=== PATIENT | female | born 1940 | race Caucasian/White ===

== ENCOUNTER 2025-05-21 20:43 | Inpatient (IN) | payer MEDICARE, SELFPAY ==
[2025-05-21 20:49] VITALS: BP 120/65; PULSE 109; RESP 18; TEMP 37.9; O2SAT 91
[2025-05-21 21:02] VITALS: PULSE 118; RESP 18
--- NOTE | 2025-05-21 21:14 | EDNOTE_ITS ---
ED Fall Injury RME/HPI General Chief Complaint: Fall Stated Complaint: ANXIETY Time Seen by Provider: 05/21/25 21:14 Arrival date/time: 05/21/25 20:43 RME / HPI RME / HPI Narrative: Dr. Pendleton?s Main ED Evaluation: 85yo female with no significant past medical history BIBA from home presents to the ED for a chief complaint of a fall. Patient slipped and fell, reporting she felt generally weak and was unable to get up. Patient reports having vomiting and a decreased appetite for the last 2- 3 days. Denies any cough, shortness of breath, or any other associated symptoms. Denies any tobacco or alcohol use. Family at bedside notes the patient's son recently . Related Data Previous Rx's ?Medication ?Instructions ?Recorded clindamycin HCl 150 mg capsule 450 mg (3 x 150 mg) PO TID #30 caps 09/30/20 Allergies Allergy/AdvReac Type Severity Reaction Status Date / Time erythromycin base Allergy Verified 09/30/20 16:40 Penicillins Allergy Verified 09/30/20 16:40 Review of Systems Review of Systems Systems Reviewed: All systems reviewed, normal except as documented Past Medical History Social History SMOKING STATUS: Former smoker ED Exam Narrative Physical exam: Generally elderly appearing female in no obvious distress, heart regular rate and rhythm, lungs clear to auscultation equal bilaterally, abdomen soft bowel sounds present nondistended nontender, extremities show no edema and no deformity., Skin is warm and dry, neurologic exam Grady Coma Scale is 15 without focal motor deficits. Course Course Course Narrative: 2112: Sepsis alert initiated. Orders made at this time are congruent with ED Adult Sepsis Order List. Re-evaluation is to be completed. CXR is ordered for determining the etiology of fever. 2141: NS IVF started. 2335: Sepsis reassessment performed consisting of lab review, vitals, physical exam including auscultation of heart, lungs, and visual evaluation of capillary refills, mucosal membranes and extremities. Quality Measures none Orders Category Date Time Status Bedside COVID-19 Antigen Test NOW Care 05/21/25 21:23 Active Bedside Influenza A&B Antigen Test NOW Care 05/21/25 21:[address] Screening NOW Care 05/21/25 23:12 Active EKG (ED ONLY) *Do not use* NOW Care 05/21/25 21:22 Completed Insert IV NOW Care 05/21/25 21:30 Active Straight [In and Out Catheter] X1 Care 05/21/25 21:[address] angio chest Stat Exams 05/21/25 23:12 Taken EKG (ED Only) Stat Exams 05/21/25 21:22 Draft XR chest 1V portable Stat Exams 05/21/25 21:22 Completed Blood Culture (Lab) Stat Lab 05/21/25 21:26 Received CBC Stat Lab 05/21/25 21:26 Completed CMP [Comprehensive Metabolic Panel] Stat Lab 05/21/25 21:26 Completed Lactic Acid [Lactate (Lactic Acid)] Stat Lab 05/21/25 21:26 Completed Lactic Acid, 3 HR Stat Lab 05/22/25 00:46 Ordered Magnesium Stat Lab 05/21/25 21:26 Completed Troponin I Stat Lab 05/21/25 21:26 Completed UA [Urinalysis] Stat Lab 05/21/25 21:36 Completed Acetaminophen Tab [Tylenol Tab] Med 05/21/25 21:22 Discontinued 650 mg PO X1 ONE Magnesium Sulfate 2 GM Ivpb [Magnesium Sulfate Ivpb] Med 05/22/25 00:56 Active 2 gm in 50 ml IV X1 POTASSIUM CHL 20 mEq IVPB [Kcl Ivpb] Med 05/21/25 23:11 Active 20 meq in 100 ml IV X1 Potassium Chloride [K-Dur] Med 05/21/25 23:10 Discontinued 60 meq PO X1 ONE Sodium Chloride 0.9% 1000 ml [Ns] 1,000 ml Med 05/21/25 23:43 Active IV 100 mls/hr Sodium Chloride 0.9% 1000 ml [Ns] 1,000 ml Med 05/21/25 21:22 Discontinued IV 999 mls/hr cefTRIAXone/D5w 1gm IV premix [Rocephin/D5w 1gm IV Med 05/21/25 21:22 Discontinued premix] 1 gm in 50 ml IV X1 Vital Signs Vital signs: Vital Signs Temperature 100.2 F 05/21/25 20:49 Pulse Rate 109 H 05/21/25 20:49 Respiratory Rate 18 05/21/25 20:49 Blood Pressure 120/65 05/21/25 20:49 Pulse Oximetry (%) 91 L 05/21/25 20:49 Oxygen Delivery Method Room Air 05/21/25 20:49 Fall MDM Narrative MDM Narrative:: Scribe Attestation: 05/21/25 - Joanna Maloney, am scribing for and in the presence of Dr. Pendleton. Differential diagnosis: UTI, pneumonia, pulmonary embolism, acute coronary syndrome, electrolyte abnormality, sepsis I interpreted all labs. Potassium was low at 2.8. Patient received 60 mill equivalents of potassium p.o. and 10 mill equivalents of potassium IV every hour x 2. Magnesium was slightly low at 1.5 so the patient will receive mag sulfate 2 g IV. Code sepsis was called in this patient. She was febrile up to 102 degrees. She received Tylenol 650 mg p.o. for fever. Urine appeared to be infected. After blood cultures are obtained the patient received Rocephin 1 g IV. Patient has not been hypotensive. Lactic acid level is 2.5. Patient's O2 saturation upon presentation on room air was 90%. Chest x-ray was clear. CT scan of the chest with IV contrast to assess for pulmonary embolism is pending interpretation by radiology. I will discuss this case with the hospitalist and the patient will require admission to hospital for further treatment and evaluation for her sepsis most likely secondary to UTI. Troponin was slightly elevated here in the emergency room with an EKG done at 9:28 PM showing a sinus tachycardia at a rate of [address] segment depress ions or elevations. Patient does not smoke cigarettes. Patient data External records reviewed:: [facility] previous records (Per chart review, patient has no relevant previous ED visits.) and EMS form Clinical information provided by:: patient Social determinants that could affect healthcare access:: none Patient has the following chronic illnesses:: none How is presenting disease/condition affected by chronic disease/condition?: no chronic disease Evaluation data The following diagnostics were reviewed and interpreted by me:: lab results, radiology exam(s) and EKG tracing(s) Lab and/or radiology exams considered but not ordered:: none Interpretation Summary: [facility] Report Signed Patient: SEBASTIAN CASTAÑEDA [facility]. Record#: [id number] Birthdate: 1940 Age/Sex: 85 / F Location: [facility] Attending Dr: Ordering Physician: Robin Pendleton DO Date of Service: 05/21/25 Procedure(s): XR chest 1V portable Accession Number(s): [id number] cc: Yuri Blackman MD; Pendleton,Robin T DO~ Examination: AP chest single view Technique one AP portable upright chest single view Date and time: May 21, 2025, 2136 hrs. Indications: Sepsis alert today Findings: Normal heart size No lobar pneumonia. No pulmonary edema. Old right clavicle fracture Prominent pulmonary arteries Impression: No pneumonia identified. Prominent pulmonary arteries, pulmonary artery hypertension pattern Dictated By: Yuri Blackman MD Signed By: <Electronically signed by Yuri Blackman MD in OV> 05/21/252153 Medications / Prescriptions Medications or Prescriptions considered but not ordered:: none Medication administrations:: Medication Administration History Potassium Chloride (Kcl Ivpb) 20 meq in 100 mls @ 50 mls/hr IV X1 ONE Stop: 05/22/25 01:10 Last Admin: 05/21/25 23:51 Dose: 50 mls/hr Documented By: JUSTIN Sodium Chloride (Ns) 1,000 mls @ 100 mls/hr IV .Q10H ONE Stop: 05/22/25 09:42 Last Admin: 05/21/25 23:51 Dose: 100 mls/hr Documented By: JUSTIN Magnesium Sulfate (Magnesium Sulfate Ivpb) 2 gm in 50 mls @ 25 mls/hr IV X1 ONE Stop: 05/22/25 02:55 Discontinued Medications Acetaminophen (Acetaminophen 325 Mg Tablet) 650 mg PO X1 ONE Stop: 05/21/25 21:23 Last Admin: 05/21/25 21:42 Dose: 650 mg Documented By: JUSTIN Ceftriaxone Sodium/Dextrose (Rocephin/D5w 1gm Iv Premix) 1 gm in 50 mls @ 100 mls/hr IV X1 ONE Stop: 05/21/25 21:51 Last Infusion: 05/21/25 23:05 Dose: Infused Documented By: Admin: 05/21/25 21:42 Dose: 100 mls/hr Documented By: JUSTIN Sodium Chloride (Ns) 1,000 mls @ 999 mls/hr IV .Q1H1M ONE Stop: 05/21/25 22:22 Last Infusion: 05/21/25 23:06 Dose: Infused Documented By: Admin: 05/21/25 21:42 Dose: 999 mls/hr Documented By: JUSTIN Potassium Chloride (Potassium Chloride 20 Meq Tabcr) 60 meq PO X1 ONE Stop: 05/21/25 23:11 Last Admin: 05/21/25 23:52 Dose: 60 meq Documented By: JUSTIN see above Consultations Consultation(s) initiated? (list below): Yes Consultation #1 (Physician, Specialty, Details): Discussed case with Dr. Dupont from Hospitalist service regarding admission. Discussed patients ED course, exam findings, labs, and radiology results. The Hospitalist agrees to accept the patient for admission. Diagnosis Fall Differential Diagnosis: other (See MDM) Most likely diagnosis given after review of the tests above:: see clinical impression below Admission Indicated Admission indicated?: indicated Admission Request Was there a request for admission?: Yes Admission Attestation Admission request attestation: Discussed case with [] from Hospitalist service regarding admission. Discussed patients ED course, exam findings, labs, and radiology results. The Hospitalist [agrees,declines] to accept the patient for admission. Disposition Plan Disposition Plan: Admit Critical Care Time Critical Care Time Total Critical Care Time (min.): 35 Attestation: Excluding other billable procedures Discharge Plan Plan Patient Disposition: Admit Acute Care w/in Hospital Prescriptions/Referrals Prescriptions/Med Rec: No Action clindamycin HCl 150 mg capsule 450 mg PO TID Qty: 30 0RF Referrals: No Primary/Family,Physician [Referring Provider] - In 1 week Problem List Clinical Impression: Sepsis, Acute UTI, Acute hypokalemia, Hypomagnesemia, Elevated troponin Patient/Caregiver Discharge Instructions Print Language: Kazakh Stand Alone Forms: Billie Award Info., Patient Portal Info Letter
[2025-05-21 21:20] VITALS: BP 110/68; PULSE 108; RESP 25; TEMP 39.2; O2SAT 92
--- NOTE | 2025-05-21 21:22 | EKG_ITS ---
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
--- NOTE | 2025-05-21 21:22 | XR_ITS ---
Examination: AP chest single view Technique one AP portable upright chest single view Date and time: May 21, 2025, 2136 hrs. Indications: Sepsis alert today Findings: Normal heart size No lobar pneumonia. No pulmonary edema. Old right clavicle fracture Prominent pulmonary arteries Impression: No pneumonia identified. Prominent pulmonary arteries, pulmonary artery hypertension pattern
[2025-05-21 21:42] VITALS: TEMP 39.2
[2025-05-21] MEDS: SODIUM CHLORIDE 0.9% 1000 ML 1,000 ML 999 ML IV (21:42)
[2025-05-21] MEDS: ACETAMINOPHEN 325 MG TABLET 650 MG PO (21:42)
[2025-05-21] MEDS: cefTRIAXone/D5w 1gm IV premix 1 GM/50 ML BAG IV (21:42)
[2025-05-21 21:51] LABS: Collection Type, Urine Voided
[2025-05-21 21:54] LABS: Lactate (Lactic Acid) 2.5 mMol/L (0.4-2.0)
[2025-05-21 21:55] LABS: Basophils # (Auto) 0.0 Thou/mm3 (0.0-0.2); Basophils % (Auto) 0 % (0-2.5); Eosinophils # (Auto) 0.0 Thou/mm3 (0.0-0.5); Eosinophils % (Auto) 0 % (0-10); Hematocrit 39.4 % (36.0-46.0); Hemoglobin 13.4 g/dL (12.0-16.0); Immature Granulocytes Auto 0.10 Thou/mm3 (0.00-0.00); Lymphocytes # (Auto) 0.4 Thou/mm3 (1.0-4.8); Lymphocytes % (Auto) 5 % (10-50); Mean Corpuscular HGB Conc 34.0 g/dl (31.0-37.0); Mean Corpuscular Hemoglobin 31.3 pg (25.0-35.0); Mean Corpuscular Volume 92 fL (80-100); Monocytes # (Auto) 0.5 Thou/mm3 (0.0-0.8); Monocytes % (Auto) 5 % (0-12); Neutrophils # (Auto) 8.2 Thou/mm3 (1.8-7.7); Neutrophils % (Auto) 89 % (37-80); Nucleated Red Blood Cell # 0.00 Thou/mm3 (0.00-0.00); Nucleated Red Blood Cell % 0 /100 WBC (0); Platelet Count 142 Thou/mm3 (140-440); RDW Standard Deviation 47.9 fL (36.4-46.3); Red Blood Count 4.28 Miln/mm3 (4.00-5.20); White Blood Count 9.1 Thou/mm3 (3.6-11.0)
[2025-05-21 22:07] LABS: Bacteria,Urine 1+; Bilirubin,Urine Negative (Negative); Blood,Urine 2+ (Negative); Budding Yeast,Urine Present; Clarity,Urine Turbid (Clear/Hazy); Color,Urine Yellow (Lt Yel-Yel); Glucose, Urine Negative (Negative); Ketones,Urine Negative (Negative); Leukocyte Esterase,Urine Positive (Negative); Nitrite,Urine Negative (Negative); PH,Urine 5.5 (5.0-7.0); Protein,Urine 1+ (Neg - Trace); RBC,Urine 9 /hpf (0-3); Specific Gravity,Urine 1.017 (1.001-1.035); Squamous Epithelial Cell,Urine 2 /hpf (0-5); Urobilinogen,Urine Negative mg/dL (0.0-1.0); WBC,Urine 65 /hpf (0-5)
[2025-05-21 22:27] LABS: Alanine Aminotransferase 16 U/L (10-49); Albumin, Serum 4.5 gm/dL (3.4-4.8); Albumin/Globulin Ratio 1.6 (1.2-2.2); Alkaline Phosphatase 100 U/L (46-116); Anion Gap 15 (7-16); Aspartate Amino Transferase 40 U/L (0-34); BUN/Creatinine Ratio 12 Ratio (12-20); Bilirubin,Total 1.1 mg/dL (0.3-1.2); Blood Urea Nitrogen 16 mg/dL (9-23); Calcium 10.4 mg/dL (8.3-10.6); Calcium (Corrected) 10.4 mg/dL (8.5-10.1); Carbon Dioxide 24.2 mMol/L (20.0-31.0); Chloride 99 mMol/L (98-107); Creatinine (Component) 1.3 mg/dL (0.6-1.3); Estimated Creatinine Clearance 36.8 mL/min (>60); Globulin 2.9 gm/dL (2.3-3.5); Glucose 202 mg/dL (74-106); Osmolality,Calculated 282 (275-295); Potassium 2.8 mMol/L (3.4-5.1); Sodium 138 mMol/L (136-145); Total Protein 7.4 gm/dL (5.7-8.2); eGFR 40 See Note
[2025-05-21 22:31] LABS: Troponin I 0.218 ng/mL (0.0-0.045)
[2025-05-21 23:08] VITALS: TEMP 37.2
--- NOTE | 2025-05-21 23:12 | XR_ITS ---
Examination: CTA chest with intravenous contrast 2-D reconstructions 3-D reconstructions, vascular Date and time of exam: May 22 thousand 25, 0018 hrs. Indications: Chest pain shortness of breath today CTDI: vol (mGy) 18.38 DLP: (mGycm) 419 Technique: Multiple axial sections of the thorax have been obtained. 3 mm slice thickness, from below the hemidiaphragms to above the apices of the lungs. Mediastinal and lung density settings have been obtained. 2-D sagittal and coronal reconstructions. 3-D angiographic renderings, 3-D volume renderings, 3D post processing, vascular maximum intensity projections obtained. Contrast administered is 100 cc Isovue-370 intravenous. Low dose protocols were performed. One or more of the following dose reduction techniques were used; automated exposure control, adjustment of the mA and/or KV according to patient size, use of iterative reconstruction technique. Findings: No thoracic aortic aneurysm dilatation or dissection No pulmonary artery emboli No paratracheal tracheobronchial or bronchopulmonary adenopathy. 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 Suspicious for early pulmonary edema the lung bases Severe scarring right kidney with nonobstructing right renal calculi
[2025-05-21] MEDS: POTASSIUM CHL 20 mEq IVPB 20 MEQ/100 ML BAG 50 MEQ IV (23:51)
[2025-05-21] MEDS: SODIUM CHLORIDE 0.9% 1000 ML 1,000 ML 100 ML IV (23:51)
[2025-05-21 23:54] LABS: Magnesium 1.5 mg/dL (1.6-2.6)
[2025-05-22] VITALS (14 sets, daily range): BP systolic 103–157; BP diastolic 63–78; PULSE 61–94; RESP 16–100; TEMP 36.2–38.4; O2SAT 92–97; BMI 30.5
[2025-05-22 00:46] LABS: Reflex Lactate? Y
[2025-05-22] MEDS: Magnesium Sulfate 2 GM Ivpb 2 GM/50 ML BAG IV (01:16)
--- NOTE | 2025-05-22 01:36 | PD.HHHP ---
Documentation for date of: 05/22/25 HPI - Hospitalist History of Present Illness History of Present Illness: UTI and generalized weakness History of present illness: 5-year-old female patient with no significant past medical history lives by herself and independent in all daily activities was brought in by ambulance after family found patient at home by bedside, patient reports having generalized weakness, episodic nausea and vomiting for the past few days along with dysuria and frequent urination. At bedside patient appears tired, reports lack of sleep. Patient denies any fall and reports that she slid from bed trying to get out as she found herself unable to stand. Patient denies any symptoms of chest pain, palpitations, SOB, abdominal pain, diarrhea or constipation. At the ED patient's vitals were noted for tachycardia along with fever of 102.5, labs were noted for potassium of 2.8, troponin 0.218, eGFR 40, glucose 202, lactic acid of 2.5, C.calcium 10.4 and magnesium of 1.5 and UA WBC 65 with bacteria and budding yeast. EKG only noted for tachycardia, CXR within normal limits, chest CTA negative for PE and only noted for pulmonary nodules. Patient was given 1L of NS bolus with potassium repletion and a dose of ceftriaxone. Patient will be admitted for sepsis in setting of UTI, NSTEMI, lactic acidosis along with electrolyte abnormalities. Review of Systems Review of Systems Systems Reviewed: All systems reviewed, normal except as documented Meds Home Medications and Allergies Allergies Allergy/AdvReac Type Severity Reaction Status Date / Time erythromycin base Allergy Verified 09/30/20 16:40 Penicillins Allergy Verified 09/30/20 16:40 Exam Vital Signs Temp Pulse Resp BP Pulse Ox O2 Del Method 97.9 F 83 16 103/63 97 Room Air 05/22/25 00:00 05/22/25 00:00 05/22/25 00:00 05/22/25 00:00 05/22/25 00:00 05/22/25 00:00 Narrative General: Well appearing, well nourished, in no distress, normal mood and affect. HEENT: Normocephalic, atraumatic, anicteric, EOM intact, PERRLA Heart: RRR, no murmur or gallop. Lungs: Clear to auscultation with equal breath sounds bilaterally. Abdomen: Bowel sounds normal, mild tenderness noted around suprapubic area. Extremities: Sensation, circulation, motor function intact and equal in all extremities. Negative for BLE edema. Neurologic: Alert and oriented to name, place and date of , CN II-XII intact, DTRs normal Results - Hospitalist Labs Diagrams: 05/21/25 21:26 05/21/25 21:26 Labs: Short CBC 05/21/25 Range/Units 21:26 WBC 9.1 (3.6-11.0) Thou/mm3 Hgb 13.4 (12.0-16.0) g/dL Hct 39.4 (36.0-46.0) % Plt Count 142 (140-440) Thou/mm3 BMP 05/21/25 21:26 Sodium 138 Potassium 2.8 L Chloride 99 Carbon Dioxide 24.2 BUN 16 Creatinine 1.3 Glucose 202 H Calcium 10.4 Cardiac Enzymes 05/21/25 Range/Units 21:26 Troponin I 0.218 H* (0.0-0.045) ng/mL Liver Function 05/21/25 Range/Units 21:26 Total Bilirubin 1.1 (0.3-1.2) mg/dL AST 40 H (0-34) U/L ALT 16 (10-49) U/L Alkaline Phosphatase 100 (46-116) U/L Albumin 4.5 (3.4-4.8) gm/dL Urine 05/21/25 Range/Units 21:36 Urine Color Yellow (Lt Yel-Yel) Urine Clarity Turbid A (Clear/Hazy) Urine pH 5.5 (5.0-7.0) Ur Specific [place] 1.017 (1.001-1.035) Urine Protein 1+ A (Neg - Trace) Urine Glucose (UA) Negative (Negative) Assessment & Plan -Hospitalist Additional Assessment 85-year-old with no past medical history brought in by ambulance from home for complaint of generalized weakness, dysuria, nausea and vomiting. Patient was found to have urinary tract infection. #Sepsis 2/2 UTI #UTI Patient started on ceftriaxone 1 g daily. Patient starting IV fluid 100 mL/HR Ondansetron as needed for nausea. Follow-up CBC Follow-up BCx/UCX #NSTEMI likely type II On admission troponin noted to be 0.218, EKG negative for ST/T wave abnormalities or LBBB Likely in setting of sepsis Follow-up repeat troponin #ESTRELLA #Electrolyte abnormality #Severe hypokalemia #Lactic acidosis Likely in setting of dehydration causing prerenal ESTRELLA Patient follows with Dr. Donahue and reports normal renal functions. K 2.8, Mg 1.5, Cr 1.3, eGFR 40 Patient given 1L of IVF, and 100 mEq of potassium Patient started on maintenance fluid. Avoid/renally dose nephrotoxic medications. Follow-up repeat renal functions. Follow-up repeat lactate Replete electrolytes as warranted. #Hyperglycemia Patient denies any history of diabetes, last A1c back in noted to be within normal limits. Follow-up HbA1c and a.m. glucose. #Pulmonary nodules Incidental finding on chest CTA Largest pulmonary nodule 1.4 cm Patient has remote history of smoking Outpatient follow-up with referral to pulmonology. DVT prophylaxis: Enoxaparin 40 mg SC daily Diet: Cardiac IV access: PIV CODE STATUS: DNR Quality Measures Quality Measures VTE prophylaxis, sepsis Current suspected stage: sepsis Possible source: genitourinary Blood cultures ordered: yes Antibiotic ordered: Yes and none Advance care planning discussed with:: patient and other (Granddaughter)
[2025-05-22 01:49] LABS: Lactic Acid, 3 HR 1.0 mMol/L (0.4-2.0)
--- NOTE | 2025-05-22 02:05 | PRELIM_ITS ---
CT angiogram of the chest with intravenous contrast (axial sections with sagittal and coronal reformats): May 22, 2025 at 0018 hours Clinical History: Pulmonary thromboembolism. Technique:Helical axial sections with sagittal and coronal reformats of the chest were obtained with intravenous contrast. Iterative reconstruction technique was employed to reduce patient radiation exposure. 3D/MIP reconstructed images were also provided. Contrast Dose: Not available at the time of interpretation. Radiation Dose: Not available at the time of interpretation. Comparison: None available at the time of this report. Findings: There is no filling defect within the pulmonary artery divisions to suggest pulmonary thromboembolism. The mediastinum demonstrates no evidence of mass or lymphadenopathy. The thoracic aorta is unremarkable. There is no pericardial effusion. Coronary artery calcifications are noted. A small hiatal hernia is present. A few lung nodules, the largest in the right lower lobe measures 1.4 cm. There are mild bilateral interstitial lung thickening. There are bilateral lower lobes atelectasis. No evidence of pleural effusion or pneumothorax. There are degenerative changes in the imaged portions of the spine. There is chronic multilevel disc disease. There is no acute fractures. Vascular calcifications are seen. Questionable left hydronephrosis versus parapelvic cysts are seen. There is right renal cortical scarring. There are nonobstructing right kidney stones. Impression: 1. No CT evidence of pulmonary thromboembolism. 2. A few lung nodules, the largest in the right lower lobe measures 1.4 cm. Further evaluation for characterization is recommended. 3. Bilateral interstitial lung thickening, suspicious for pulmonary edema. 4. Coronary arteries calcifications. If acute myocardial infarction is clinically suspected consider correlation with troponin. 5. Small hiatus hernia. 6. Questionable left hydronephrosis versus parapelvic cysts. 7. Right renal cortical scarring. 8. Nonobstructing right kidney stones. Report Electronically Signed By: Con Farley 05/22/2025 2:05:05 AM [EST]
--- NOTE | 2025-05-22 03:37 | PC.NURSE ---
Family will bring medications to complete med rec.
[2025-05-22 05:36] LABS: Basophils # (Auto) 0.0 Thou/mm3 (0.0-0.2); Basophils % (Auto) 0 % (0-2.5); Eosinophils # (Auto) 0.0 Thou/mm3 (0.0-0.5); Eosinophils % (Auto) 0 % (0-10); Hematocrit 35.9 % (36.0-46.0); Hemoglobin 11.8 g/dL (12.0-16.0); Immature Granulocytes Auto 0.06 Thou/mm3 (0.00-0.00); Lymphocytes # (Auto) 0.8 Thou/mm3 (1.0-4.8); Lymphocytes % (Auto) 13 % (10-50); Mean Corpuscular HGB Conc 32.9 g/dl (31.0-37.0); Mean Corpuscular Hemoglobin 30.9 pg (25.0-35.0); Mean Corpuscular Volume 94 fL (80-100); Monocytes # (Auto) 0.6 Thou/mm3 (0.0-0.8); Monocytes % (Auto) 9 % (0-12); Neutrophils # (Auto) 4.7 Thou/mm3 (1.8-7.7); Neutrophils % (Auto) 77 % (37-80); Nucleated Red Blood Cell # 0.00 Thou/mm3 (0.00-0.00); Nucleated Red Blood Cell % 0 /100 WBC (0); Platelet Count 116 Thou/mm3 (140-440); RDW Standard Deviation 49.1 fL (36.4-46.3); Red Blood Count 3.82 Miln/mm3 (4.00-5.20); White Blood Count 6.1 Thou/mm3 (3.6-11.0)
[2025-05-22 06:08] LABS: Anion Gap 10 (7-16); BUN/Creatinine Ratio 12 Ratio (12-20); Blood Urea Nitrogen 14 mg/dL (9-23); Calcium 9.6 mg/dL (8.3-10.6); Carbon Dioxide 26.3 mMol/L (20.0-31.0); Chloride 105 mMol/L (98-107); Creatinine (Component) 1.2 mg/dL (0.6-1.3); Estimated Creatinine Clearance 39.2 mL/min (>60); Glucose 124 mg/dL (74-106); Osmolality,Calculated 282 (275-295); Potassium 3.1 mMol/L (3.4-5.1); Sodium 141 mMol/L (136-145); eGFR 44 See Note
[2025-05-22 06:15] LABS: Troponin I 0.611 ng/mL (0.0-0.045)
[2025-05-22] MEDS: POTASSIUM CHL 10 mEq IVPB 10 MEQ/100 ML BAG 100 MEQ IV ×4 (10:03→14:09)
[2025-05-22 11:11] LABS: Troponin I 0.443 ng/mL (0.0-0.045)
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
--- NOTE | 2025-05-22 11:38 | PC.SS ---
SNF referral submitted per family request to all local 5 facilities pending responses on [facility].
--- NOTE | 2025-05-22 13:18 | ESPR_ITS ---
<Statement entered by Cam Pena MD - 05/27/25 07:14> I reviewed above note and agree with findings and plans. I have also personally examined the patient with medicine team and went over assessment and plan with medical team including internal medicine nurse practitioner and resident physician. <Statement entered by Bon Hayes MD - 05/22/25 13:26> Overnight admission, no acute events. Seen and examined at bedside and acute encephalopathy resolved as she is alert and oriented x 4. States that she overall feels better. Spoke to granddaughter alone and reports concern of patient's living conditions, so referral to social research assistant was placed. Otherwise, will continue on Rocephin and follow-up cultures for UTI and continue with IVF for ESTRELLA. Troponins peaked at 0.6 and down trended, will stop trending and no need for cardiology consult. ----- Note reviewed and agree with care plan as documented. Please refer to the note below for further details. Plan discussed with attending physician Dr. Jean Hayes MD PGY-2 Internal Medicine Documentation for date of: 05/22/25 Subjective Subjective Interval history: Troponins trending down. Patient's potassium is 3.1, 40 mill EQ potassium ordered. Patient is slightly hypertensive with BP 141/78, otherwise vitals are stable. Per the patient's granddaughters, her mentation has improved since they first encountered her with altered mental status. Will continue antibiotics Exam Vital Signs Temp Pulse Resp BP Pulse Ox O2 Del Method O2 Flow Rate 97.4 F 81 18 141/78 H 95 Room Air 1 05/22/25 12:00 05/22/25 13:07 05/22/25 12:00 05/22/25 12:00 05/22/25 12:05/22/25 12:05/22/25 08:00 Narrative Exam General: Awake and in no acute distress. Conversational and non-toxic appearing. Neurologic: GCS 15. Alert and oriented x3, no gross neurological deficit, and patient able to move all 4 extremities. HEENT: Normocephalic, atraumatic, mucous membranes moist. Pupils reactive to light. Heart: Regular rate and rhythm, normal S1 and S2, no murmurs. Lungs: Clear to auscultation bilaterally with no wheezing or crackles. Abdomen: Soft, nondistended, nontender, positive bowel sounds. No guarding or rebound tenderness. Extremities: No edema. 2+ radial and dorsalis pedis pulses bilaterally. Skin: Warm. Dry. No rash or ecchymoses. Objective Labs 05/22/25 04:50 05/22/25 04:50 Labs: Laboratory Results - last 24 hr 05/21/25 05/21/25 05/22/25 21:26 21:36 01:36 WBC 9.1 RBC 4.28 Hgb 13.4 Hct 39.4 MCV 92 MCH 31.3 MCHC 34.0 RDW Std Deviation 47.9 H Plt Count 142 Neut % (Auto) 89 H Lymph % (Auto) 5 L [place] % (Auto) 5 Eos % (Auto) 0 Baso % (Auto) 0 Neut # (Auto) 8.2 H Lymph # (Auto) 0.4 L [place] # (Auto) 0.5 Eos # (Auto) 0.0 Baso # (Auto) 0.0 Immature Gran # (Auto) 0.10 H Absolute Nucleated RBC 0.00 Immature Gran % 1 H Nucleated RBC % 0 Sodium 138 Potassium 2.8 L Chloride 99 Carbon Dioxide 24.2 Anion Gap 15 BUN 16 Creatinine 1.3 Estim Creat Clear Calc 36.8 L eGFR 40 L BUN/Creatinine Ratio 12 Glucose 202 H Calculated Osmolality 282 Lactic Acid 2.5 H 1.0 Calcium 10.4 Corrected Calcium 10.4 H Magnesium 1.5 L Total Bilirubin 1.1 AST 40 H ALT 16 Alkaline Phosphatase 100 Troponin I 0.218 H* Total Protein 7.4 Albumin 4.5 Globulin 2.9 Albumin/Globulin Ratio 1.6 Ur Collection Type Voided Urine Color Yellow Urine Clarity Turbid A Urine pH 5.5 Ur Specific [place] 1.017 Urine Protein 1+ A Urine Glucose (UA) Negative Urine Ketones Negative Urine Blood 2+ A Urine Nitrite Negative Urine Bilirubin Negative Urine Urobilinogen (Auto) Negative Ur Leukocyte Esterase Positive Urine RBC 9 H Urine WBC 65 H Ur Squamous Epith Cells 2 Urine Bacteria 1+ A Urine Yeast (Budding) Present A 05/22/25 05/22/25 04:50 10:30 WBC 6.1 RBC 3.82 L Hgb 11.8 L Hct 35.9 L MCV 94 MCH 30.9 MCHC 32.9 RDW Std Deviation 49.1 H Plt Count 116 L Neut % (Auto) 77 Lymph % (Auto) 13 [place] % (Auto) 9 Eos % (Auto) 0 Baso % (Auto) 0 Neut # (Auto) 4.7 Lymph # (Auto) 0.8 L [place] # (Auto) 0.6 Eos # (Auto) 0.0 Baso # (Auto) 0.0 Immature Gran # (Auto) 0.06 H Absolute Nucleated RBC 0.00 Immature Gran % 1 H Nucleated RBC % 0 Sodium 141 Potassium 3.1 L Chloride 105 Carbon Dioxide 26.3 Anion Gap 10 BUN 14 Creatinine 1.2 Estim Creat Clear Calc 39.2 L eGFR 44 L BUN/Creatinine Ratio 12 Glucose 124 H D Calculated Osmolality 282 Lactic Acid Calcium 9.6 Corrected Calcium Magnesium Total Bilirubin AST ALT Alkaline Phosphatase Troponin I 0.611 H* D 0.443 H* Total Protein Albumin Globulin Albumin/Globulin Ratio Ur Collection Type Urine Color Urine Clarity Urine pH Ur Specific [place] Urine Protein Urine Glucose (UA) Urine Ketones Urine Blood Urine Nitrite Urine Bilirubin Urine Urobilinogen (Auto) Ur Leukocyte Esterase Urine RBC Urine WBC Ur Squamous Epith Cells Urine Bacteria Urine Yeast (Budding) Quality Measures Quality Measures VTE prophylaxis, sepsis Current suspected stage: sepsis Possible source: genitourinary Blood cultures ordered: yes Antibiotic ordered: Yes and none Advance care planning discussed with:: patient and other (Granddaughter) Assessment & Plan Assessment Current Active Medications: Generic Name Dose Route Start Last Admin Trade Name Freq PRN Reason Stop Dose Admin Ceftriaxone Sodium/Dextrose 1 gm in 50 mls @ 100 mls/hr 05/22/25 21:00 Rocephin/D5w 1gm Iv Premix IV 05/29/25 20:59 QDAY YUE Lactulose 20 gm 05/22/25 01:30 Lactulose Syrup 20 Gm/30 Ml Udc PO 06/21/25 08:59 QDAY PRN Constipation Protocol Ondansetron HCl 4 mg 05/22/25 01:25 Ondansetron Inj 2 Mg/Ml Inj 2 Ml IVP 06/21/25 01:24 Q6H PRN NAUSEA OR VOMITING Protocol Plan 85-year-old female with no significant past medical history who lives alone was brought in by ambulance after family members found her in the [place] position at the side of her bed on the floor. The patient reported having generalized weakness, episodic nausea and vomiting, and dysuria with frequent urination over the past few days. She mentions that after she slipped out of her bed onto the floor, she could not move but denied trauma or loss of consciousness. She was found to have a white blood cell count of 65 with bacteria and budding yeast on urinalysis. She was also found to be hypokalemic with a potassium of 2.8 on arrival. She was started on ceftriaxone, her potassium was supplemented, and she was given a liter of normal saline in the ED and admitted for management of her acute encephalopathy secondary to UTI. #Acute encephalopathy secondary to UTI #Lactic acidosis (resolved) * Patient mentioned that she has had pain and burning on urination over the past 2 weeks * Urinalysis positive for WBC 65, RBC 9, 1+ bacteria, and budding yeast * Patient was started on ceftriaxone in the ED, mentation improved dramatically overnight * Lactic acid trended from 2.5 to 1.0 Plan: * Continue ceftriaxone 1 g daily #NSTEMI likely type II * Patient's troponins trended from 0.218 to 0.611 to 0.443, EKG on arrival showed sinus tachycardia with no acute ST segment changes, will not consult cardiology. Plan: * Trend 1 more troponin at 11 PM on 05/22/2025 #Hypokalemia * Most recent potassium was 3.1 Plan: * 40 mill EQ's potassium given * Follow-up CMP #ESTRELLA * Creatinine cathy from 0.7 up to 1.3 and then back down to 1.2, eGFR 39 * Consider dehydration leading to prerenal ESTRELLA Plan: * Maintenance LR at 100 mL/h #Hyperglycemia * Patient denies any history of diabetes * Fingerstick blood glucose 272 at time of admission * A1c on 04/03/2023 was 5.4 Plan: * Follow-up A1c #Pulmonary nodules * Multiple pulmonary nodules found on CTA incidentally * Patient has remote history of smoking Plan: * Outpatient referral and follow-up with pulmonology Hospital Maintenance: DVT ppx: Enoxaparin 40 mg subcu daily Diet: Cardiac diet IV lines: Peripheral IV Huerta: None Code status: DNR Dispo: Will continue antibiotics. Dissipate discharge within the next 24 hours. Patient was seen and discussed with my attending physician Dr. Jean IBARRA and my senior resident Dr. Abigail IBARRA PGY-2. Jason Vanessa DO PGY-1.
[2025-05-22] MEDS: ONDANSETRON INJ 2 MG/ML INJ 2 ML 4 MG IVP (14:09)
--- NOTE | 2025-05-22 15:17 | PC.SS ---
Rounding: On IV ABX, pending PT eval
[2025-05-22 18:36] LABS: Troponin I 0.490 ng/mL (0.0-0.045)
[2025-05-22] MEDS: ACETAMINOPHEN 325 MG TABLET 650 MG PO (20:00)
[2025-05-22] MEDS: cefTRIAXone/D5w 1gm IV premix 1 GM/50 ML BAG IV (20:00)
[2025-05-22] MEDS: MELATONIN 3 MG TABLET 6 MG PO (22:58)
[2025-05-22 23:44] LABS: Troponin I 0.423 ng/mL (0.0-0.045)
[2025-05-23] VITALS (11 sets, daily range): BP systolic 119–152; BP diastolic 59–86; PULSE 61–100; RESP 13–96; TEMP 36.2–36.7; O2SAT 92–100; BMI 31.4
[2025-05-23 06:20] LABS: Basophils # (Auto) 0.0 Thou/mm3 (0.0-0.2); Basophils % (Auto) 0 % (0-2.5); Eosinophils # (Auto) 0.0 Thou/mm3 (0.0-0.5); Eosinophils % (Auto) 1 % (0-10); Hematocrit 33.8 % (36.0-46.0); Hemoglobin 11.3 g/dL (12.0-16.0); Immature Granulocytes Auto 0.03 Thou/mm3 (0.00-0.00); Lymphocytes # (Auto) 0.9 Thou/mm3 (1.0-4.8); Lymphocytes % (Auto) 25 % (10-50); Mean Corpuscular HGB Conc 33.4 g/dl (31.0-37.0); Mean Corpuscular Hemoglobin 31.6 pg (25.0-35.0); Mean Corpuscular Volume 94 fL (80-100); Monocytes # (Auto) 0.4 Thou/mm3 (0.0-0.8); Monocytes % (Auto) 12 % (0-12); Neutrophils # (Auto) 2.1 Thou/mm3 (1.8-7.7); Neutrophils % (Auto) 61 % (37-80); Nucleated Red Blood Cell # 0.00 Thou/mm3 (0.00-0.00); Nucleated Red Blood Cell % 0 /100 WBC (0); Platelet Count 93 Thou/mm3 (140-440); RDW Standard Deviation 48.9 fL (36.4-46.3); Red Blood Count 3.58 Miln/mm3 (4.00-5.20); White Blood Count 3.5 Thou/mm3 (3.6-11.0)
[2025-05-23 07:54] LABS: Anion Gap 11 (7-16); BUN/Creatinine Ratio 13 Ratio (12-20); Blood Urea Nitrogen 9 mg/dL (9-23); Calcium 9.5 mg/dL (8.3-10.6); Carbon Dioxide 25.4 mMol/L (20.0-31.0); Chloride 103 mMol/L (98-107); Creatinine (Component) 0.7 mg/dL (0.6-1.3); Estimated Creatinine Clearance 68.1 mL/min (>60); Glucose 91 mg/dL (74-106); Osmolality,Calculated 276 (275-295); Potassium 3.2 mMol/L (3.4-5.1); Sodium 139 mMol/L (136-145); eGFR > 60 See Note
[2025-05-23] MEDS: POTASSIUM CHL 10 mEq IVPB 10 MEQ/100 ML BAG 100 MEQ IV (08:47)
[2025-05-23] MEDS: POTASSIUM CHLORIDE 10% 20 MEQ/15 ML UDC 40 MEQ GT (10:27)
[2025-05-23] MEDS: cefTRIAXone 2 GM in SODIUM CHLORIDE 0.9% (Popper) 50 ML IV (12:42)
--- NOTE | 2025-05-23 15:02 | ESPR_ITS ---
<Statement entered by Cam Pena MD - 05/27/25 14:17> I reviewed above note and agree with findings and plans. I have also personally examined the patient with medicine team and went over assessment and plan with medical team including internist medical doctor md and resident physician. <Statement entered by Tony Freeman MD - 05/24/25 08:05> Patient examined and case discussed with the team including attending physician. Note reviewed, I agree with the care plan as documented. Please refer to the note below for further details. - Tony Freeman MD, PGY 3 Disclaimer: The document may contain phonetic/typographic errors due to voice recognition software. These errors are purely due to imperfections in the software program. Documentation for date of: 05/23/25 Subjective Subjective Interval history: Patient spiked a temperature of 101.1 last evening. Currently afebrile. Blood cultures positive for gram-negative kapil bacteremia. Will increase Rocephin dose from 1g to 2g. Troponins down trended. Exam Vital Signs Temp Pulse Resp BP Pulse Ox O2 Del Method O2 Flow Rate 97.2 F 84 20 121/65 94 L Room Air 1 05/23/25 12:00 05/23/25 12:00 05/23/25 12:00 05/23/25 12:00 05/23/25 12:05/23/25 12:05/22/25 08:00 Narrative Exam General: Awake and in no acute distress. Conversational and non-toxic appearing. Neurologic: GCS 15. Alert and oriented x3, no gross neurological deficit, and patient able to move all 4 extremities. HEENT: Normocephalic, atraumatic, mucous membranes moist. Pupils reactive to light. Heart: Regular rate and rhythm, normal S1 and S2, no murmurs. Lungs: Clear to auscultation bilaterally with no wheezing or crackles. Abdomen: Soft, nondistended, nontender, positive bowel sounds. No guarding or rebound tenderness. Extremities: No edema. 2+ radial and dorsalis pedis pulses bilaterally. Skin: Warm. Dry. No rash or ecchymoses. Objective Labs 05/23/25 05:50 05/23/25 05:50 Labs: Laboratory Results - last 24 hr 05/22/25 05/22/25 05/23/25 18:00 23:05 05:50 WBC 3.5 L D RBC 3.58 L Hgb 11.3 L Hct 33.8 L MCV 94 MCH 31.6 MCHC 33.4 RDW Std Deviation 48.9 H Plt Count 93 L Neut % (Auto) 61 Lymph % (Auto) 25 [place] % (Auto) 12 Eos % (Auto) 1 Baso % (Auto) 0 Neut # (Auto) 2.1 Lymph # (Auto) 0.9 L [place] # (Auto) 0.4 Eos # (Auto) 0.0 Baso # (Auto) 0.0 Immature Gran # (Auto) 0.03 H Absolute Nucleated RBC 0.00 Immature Gran % 1 H Nucleated RBC % 0 Sodium 139 Potassium 3.2 L Chloride 103 Carbon Dioxide 25.4 Anion Gap 11 BUN 9 Creatinine 0.7 D Estim Creat Clear Calc 68.1 eGFR > 60 BUN/Creatinine Ratio 13 Glucose 91 Calculated Osmolality 276 Calcium 9.5 Troponin I 0.490 H* 0.423 H* Quality Measures Quality Measures VTE prophylaxis, sepsis Current suspected stage: sepsis Possible source: genitourinary Blood cultures ordered: yes Antibiotic ordered: Yes and none Advance care planning discussed with:: patient Assessment & Plan Assessment Current Active Medications: Generic Name Dose Route Start Last Admin Trade Name Freq PRN Reason Stop Dose Admin Acetaminophen 1,000 mg 05/23/25 13:39 Acetaminophen 500 Mg Tablet PO 06/21/25 19:49 Q6HR PRN Fever >99.9 Ceftriaxone Sodium 2 gm/ 50 mls @ 100 mls/hr 05/23/25 11:56 05/23/25 12:42 Sodium Chloride IV 05/30/25 11:55 100 mls/hr QDAY YUE Administration Lactulose 20 gm 05/22/25 01:30 Lactulose Syrup 20 Gm/30 Ml Udc PO 06/21/25 08:59 QDAY PRN Constipation Protocol Ondansetron HCl 4 mg 05/22/25 01:25 05/22/25 14:09 Ondansetron Inj 2 Mg/Ml Inj 2 Ml IVP 06/21/25 01:24 4 mg Q6H PRN Administration NAUSEA OR VOMITING Protocol Plan 85-year-old female with no significant past medical history who lives alone was brought in by ambulance after family members found her in the [place] position at the side of her bed on the floor. The patient reported having generalized weakness, episodic nausea and vomiting, and dysuria with frequent urination over the past few days. She mentions that after she slipped out of her bed onto the floor, she could not move but denied trauma or loss of consciousness. She was found to have a white blood cell count of 65 with bacteria and budding yeast on urinalysis. She was also found to be hypokalemic with a potassium of 2.8 on arrival. She was started on ceftriaxone, her potassium was supplemented, and she was given a liter of normal saline in the ED and admitted for management of her acute encephalopathy secondary to UTI. #Acute encephalopathy secondary to UTI #Lactic acidosis (resolved) #Sepsis secondary to GNR bacteremia * Patient mentioned that she has had pain and burning on urination over the past 2 months * Urinalysis positive for WBC 65, RBC 9, 1+ bacteria, and budding yeast * Lactic acid down trended from 2.5-1.0 * Patient was started on ceftriaxone in the ED * Urine culture positive for gram-negative rods * Blood culture positive for gram-negative rods Plan: * Increase ceftriaxone dose to 2 g daily #NSTEMI likely type II * Patient's troponins trended from 0.218 to 0.611 to 0.443 to 0.423, EKG on arrival showed sinus tachycardia with no acute ST segment changes, will not consult cardiology. Plan: * DC troponin tracking due to downtrend #Hypokalemia * Potassium 3.2 Plan: * 10 mill EQ IV potassium given, 20 mg oral tablet ordered * Follow-up daily labs #ESTRELLA (Resolved) #Hyperglycemia (Resolved) * Patient denies any history of diabetes * Fingerstick blood glucose 272 at time of admission * A1c on 04/03/2023 was 5.4 * Glucose has been controlled, hyperglycemia readings likely an acute phase reaction #Pulmonary nodules * Multiple pulmonary nodules found on CTA incidentally * Patient has remote history of smoking Plan: * Outpatient referral and follow-up with pulmonology Hospital Maintenance: DVT ppx: Enoxaparin 40 mg subcu daily Diet: Cardiac diet IV lines: Peripheral IV Huerta: None Code status: DNR Dispo: Will continue antibiotics for gram-negative kapil bacteremia. Patient was seen and discussed with my attending physician Dr. Jean IBARRA and my senior resident Dr. Tony Freeman MD PGY-3. Jason Vanessa DO PGY-1.
[2025-05-24] VITALS (7 sets, daily range): BP systolic 113–147; BP diastolic 61–73; PULSE 61–86; RESP 18–96; TEMP 36.1–36.6; O2SAT 91–99; BMI 32.1
[2025-05-24] MEDS: MELATONIN 3 MG TABLET 6 MG PO (00:04)
[2025-05-24 05:35] LABS: Basophils # (Auto) 0.0 Thou/mm3 (0.0-0.2); Basophils % (Auto) 0 % (0-2.5); Eosinophils # (Auto) 0.1 Thou/mm3 (0.0-0.5); Eosinophils % (Auto) 2 % (0-10); Hematocrit 32.0 % (36.0-46.0); Hemoglobin 10.8 g/dL (12.0-16.0); Immature Granulocytes Auto 0.03 Thou/mm3 (0.00-0.00); Lymphocytes # (Auto) 0.9 Thou/mm3 (1.0-4.8); Lymphocytes % (Auto) 29 % (10-50); Mean Corpuscular HGB Conc 33.8 g/dl (31.0-37.0); Mean Corpuscular Hemoglobin 31.3 pg (25.0-35.0); Mean Corpuscular Volume 93 fL (80-100); Monocytes # (Auto) 0.3 Thou/mm3 (0.0-0.8); Monocytes % (Auto) 11 % (0-12); Neutrophils # (Auto) 1.7 Thou/mm3 (1.8-7.7); Neutrophils % (Auto) 57 % (37-80); Nucleated Red Blood Cell # 0.00 Thou/mm3 (0.00-0.00); Nucleated Red Blood Cell % 0 /100 WBC (0); Platelet Count 114 Thou/mm3 (140-440); RDW Standard Deviation 48.3 fL (36.4-46.3); Red Blood Count 3.45 Miln/mm3 (4.00-5.20); White Blood Count 3.1 Thou/mm3 (3.6-11.0)
[2025-05-24 06:09] LABS: Anion Gap 10 (7-16); BUN/Creatinine Ratio 12 Ratio (12-20); Blood Urea Nitrogen 7 mg/dL (9-23); Calcium 9.3 mg/dL (8.3-10.6); Carbon Dioxide 24.5 mMol/L (20.0-31.0); Chloride 106 mMol/L (98-107); Creatinine (Component) 0.6 mg/dL (0.6-1.3); Estimated Creatinine Clearance 79.5 mL/min (>60); Glucose 94 mg/dL (74-106); Osmolality,Calculated 277 (275-295); Potassium 3.9 mMol/L (3.4-5.1); Sodium 140 mMol/L (136-145); eGFR > 60 See Note
[2025-05-24] MEDS: cefTRIAXone 2 GM in SODIUM CHLORIDE 0.9% (Popper) 50 ML IV (08:38)
--- NOTE | 2025-05-24 09:53 | PC.SS ---
Addendum entered by Emma Kapadia 05/24/25 16:10: Patient has authorization for SNF. Patient to d/c early evening at 6:15p.m. via [facility] Family present in room and aware Addendum entered by Emma Kapadia 05/24/25 11:56: Kate [place], daughter, Sid Sheets, daughter, Original Note: Follow up note: SS spoke to patient's daughter, Kate, who states she and her sister are agreeable to [place] or [place]. SS submitted to facilities
--- NOTE | 2025-05-24 13:49 | ESDS_ITS ---
<Statement entered by Cam Pena MD - 05/27/25 14:18> I reviewed above note and agree with findings and plans. I have also personally examined the patient with medicine team and went over assessment and plan with medical team including internal grinding machine operator and resident physician. <Statement entered by Bon Hayes MD - 05/24/25 15:24> Note reviewed and agree with care plan as documented. Please refer to the note below for further details. Plan discussed with attending physician Dr. Jean Hayes MD PGY-2 Internal Medicine Planned Discharge Date 05/24/25 DS: Providers Provider Date of admission: 05/22/25 01:25 Primary care physician: Crystal Donahue MD Admitting Provider: Rebeka Dupont MD Attending Provider on Admission: Cam Pena MD Consults: 05/22/25 01:35 Referral Physical Therapy Routine Comment: Physician Instructions: Attending Provider on DC: Cam Pena MD Discharging Provider: RESIDENT [place] DS: Diagnosis Discharge Diagnosis (1) Acute UTI: Status: Acute Problem List Completed Was Problem List Reviewed/Reconciled?: Yes Hospital Course Hospital Course Hospital course: Hospital Course: 85-year-old female with no significant past medical history who lives alone was brought in by ambulance after family members found her in the [place] position at the side of her bed on the floor. The patient reported having generalized weakness, episodic nausea and vomiting, and dysuria with frequent urination over the past few days. She mentions that after she slipped out of her bed onto the floor, she could not move but denied trauma or loss of consciousness. Chest CTA was positive for multiple incidental pulmonary nodules. She was found to have a white blood cell count of 65 with bacteria and budding yeast on urinalysis. She was also found to be hypokalemic with a potassium of 2.8 on arrival. She was started on ceftriaxone, her potassium was supplemented, and she was given a liter of normal saline in the ED and admitted for management of her acute encephalopathy secondary to UTI. During the patient's hospital stay, she was found to have a urine and blood culture both positive for E. coli. She was started on Rocephin. Also during her stay, troponins were elevated but eventually down trended. The patient presented with altered mental status. Over the course of her hospital stay, the patient's mental status returned to baseline and her vitals were stable on discharge. She will be [facility] to a [facility] facility, per PT recommendations, on a regimen of amoxicillin/clavulanate acid to be taken over 5 days. Problem List: #Acute encephalopathy secondary to UTI #Lactic acidosis (resolved) #Sepsis secondary to GNR bacteremia #NSTEMI likely type II #Hypokalemia #ESTRELLA (Resolved) #Hyperglycemia (Resolved) #Pulmonary nodules Discharge Instructions: - Take your Amoxicillin Clavulanate antibiotic twice per day. If you miss a dose, then do not stack doses, take the medication at the next appropriate time of day. Be sure to finish the entire course of medicine and try not to miss doses. - Follow-up outpatient pulmonology for your multiple pulmonary nodules found on imaging. - Resume all of your other home medications. - Follow-up with PCP within 1-2 weeks of discharge. - If you do not have a PCP, you can follow-up at the [facility]. - Return to ED if symptoms worsen. The patient was seen and discussed with my attending physician Dr. Pena and my senior resident Dr. Abigail IBARRA PGY-2. Jason Vanessa DO PGY-1 Time Spent with Patient Time attestation: Total time spent providing and/or coordinating discharge services: Greater than 50%. Time spent: Greater than 30 minutes Exam Vital Signs Temp Pulse Resp BP Pulse Ox O2 Del Method O2 Flow Rate 97.8 F 86 18 113/73 95 Nasal Cannula 2 05/24/25 12:05/24/25 12:05/24/25 12:05/24/25 12:05/24/25 12:05/24/25 12:05/24/25 12:00 Narrative Exam General: Awake and in no acute distress. Conversational and non-toxic appearing. Neurologic: GCS 15. Alert and oriented x3, no gross neurological deficit, and patient able to move all 4 extremities. HEENT: Normocephalic, atraumatic, mucous membranes moist. Pupils reactive to light. Heart: Regular rate and rhythm, normal S1 and S2, no murmurs. Lungs: Clear to auscultation bilaterally with no wheezing or crackles. Abdomen: Soft, nondistended, nontender, positive bowel sounds. No guarding or rebound tenderness. Extremities: No edema. 2+ radial and dorsalis pedis pulses bilaterally. Skin: Warm. Dry. No rash or ecchymoses. Discharge Plan Plan Patient Disposition: Xfer Skilled Nsg Fac (SNF) Care Plan Goals: - Take your Amoxicillin Clavulanate antibiotic twice per day. If you miss a dose, then do not stack doses, take the medication at the next appropriate time of day. Be sure to finish the entire course of medicine and try not to miss doses. - Follow-up outpatient pulmonology for your multiple pulmonary nodules found on imaging. - Resume all of your other home medications. - Follow-up with PCP within 1-2 weeks of discharge. - If you do not have a PCP, you can follow-up at the [facility]. - Return to ED if symptoms worsen. Prescriptions/Referrals Prescriptions/Med Rec: New amoxicillin-pot clavulanate 500-125 mg tablet 1 tab PO BID 5 Days Qty: 10 0RF Continued allopurinol 300 mg tablet 300 mg PO QDAY Patient Comments: TAKE ONE TABLET BY MOUTH DAILY AT 9AM levothyroxine 112 mcg tablet 112 mcg PO QAM Patient Comments: TAKE ONE TABLET BY MOUTH DAILY AT 8AM metoprolol ta-hydrochlorothiaz 50-25 mg tablet 1 tab PO QDAY Patient Comments: TAKE ONE TABLET BY MOUTH DAILY AT 9AM simvastatin 20 mg tablet 20 mg PO .qhs Patient Comments: TAKE ONE TABLET BY MOUTH DAILY AT 9PM NIGHTLY paroxetine HCl 20 mg tablet 20 mg PO QDAY Patient Comments: TAKE ONE TABLET BY MOUTH DAILY Referrals: Crystal Donahue MD [Primary Care Provider, Nephrology] Patient/Caregiver Discharge Instructions Print Language: Kiswahili Stand Alone Forms: Billie Award Info., Patient Portal Info Letter Discharge Order Discharge Orders: Discharge (Routine); Ordered 05/24/25 Ordered By: Bon Hayes Quality Discharge Quality Measures none
== END 2025-05-24 19:00 | disposition skilled nursing facility (03) | DRG 689 ==
LOC: SERX 05-22 01:06 → SERHOLD 05-22 02:15 → S3SX 05-22 02:36
PROVIDERS: Admitting Provider Student in an Organized Health Care Education/Training Program; Emergency Provider Emergency Medicine; PCP Internal Medicine; Visit Provider Internal Medicine
DX: N39.0 Urinary tract infection, site not specified (principal); G92.9 Unspecified toxic encephalopathy; I21.A1 Myocardial infarction type 2; N17.9 Acute kidney failure, unspecified; E87.20 Acidosis, unspecified; B96.89 Other specified bacterial agents as the cause of diseases classified elsewhere; R91.8 Other nonspecific abnormal finding of lung field; I10 Essential (primary) hypertension; E87.6 Hypokalemia; R73.9 Hyperglycemia, unspecified; Z66 Do not resuscitate; Z63.4 Disappearance and death of family member; Z87.891 Personal history of nicotine dependence; W01.0XXA Fall on same level from slipping, tripping and stumbling without subsequent striking against object, initial encounter; Z88.0 Allergy status to penicillin
CPT/HCPCS: 36415; 71045; 71275; 80048; 80053; 81001; 83605; 83735; 84484; 85025; 87040; 87077; 87086; 87186; 87400; 87811; 93005; 93225; 96365; 96366; 96375; 97162; 99284; A4649; J0696; J2405; J3475; J3480; J7030; J7050; Q9967; A9270